=== PATIENT | female | born 1935 | race African-American/Black ===

== ENCOUNTER 2018-04-14 13:01 | Emergency (ER) | payer MEDICARE, MEDICAID ==
[~2018-04-14] VITALS: Ht 165.1 cm; Wt 80.0 kg
[~2018-04-14 13:01] MED LIST: ALEN35TA30 PO; AMLODIPINE PO; CLOP75TA16 PO
[2018-04-14] MEDS ORDERED: SODIUM CHLORIDE 0.9% 1,000 ML IV ONE (13:26)
[2018-04-14 14:29] LABS: BASOPHILS % 0.5 % (0.0-2.0); EOSINOPHILS % 0.6 % (0.0-5.0); HEMATOCRIT. 43.4 % (36.0-48.0); HEMOGLOBIN. 14.5 g/dL (12.0-16.0); LYMPHOCYTES % 25.2 % (20.0-50.0); MEAN CORPUSCULAR HEMOGLOBIN 27.9 pg (28.0-32.0); MEAN CORPUSCULAR VOLUME 83.5 fL (81.0-99.0); MEAN PLATELET VOLUME 7.8 fl (7.4-10.4); NEUTROPHILS % 66.7 % (40.0-76.0); PLATELET 251 x1000/uL (130-400); RED CELL DISTRIBUTION WIDTH 15.7 % (11.6-14.6)
[2018-04-14 14:33] LABS: CHLORIDE 108 mEq/L (98-107)
[2018-04-14 14:35] LABS: PROTHROMBIN TIME 10.7 sec (9.4-11.6)
[2018-04-14 16:40] VITALS: BP 152/89
== END 2018-04-14 16:40 | disposition home or self-care (01) ==
LOC: ER 13:01 → CANBEDREQ 18:42
DX: R55 Syncope and collapse (principal); I10 Essential (primary) hypertension
CPT/HCPCS: 36415; 71045; 80053; 84484; 85025; 85610; 93005; 96360; 96361; 99285; J7030

== ENCOUNTER 2025-09-02 07:59 | Inpatient (IN) | payer MEDICARE, MEDICAID ==
[~2025-09-02] VITALS: Ht 160 cm; Wt 81.6 kg
[~2025-09-02 07:59] MED LIST changes: -ALEN35TA30 PO; +ALEN35TA52 PO; +CLOP-31 PO; -CLOP75TA16 PO
[2025-09-02 08:02] VITALS: O2SAT 98
[2025-09-02 08:58] LABS: BASOPHILS % 0.7 % (0.0-2.0); EOSINOPHILS % 1.5 % (0.0-5.0); HEMATOCRIT. 44.8 % (36.0-48.0); HEMOGLOBIN. 14.5 g/dL (12.0-16.0); LYMPHOCYTES % 25.4 % (20.0-50.0); MEAN PLATELET VOLUME 7.7 fl (7.4-10.4); MONOCYTES % 5.7 % (2.0-8.0); NEUTROPHILS % 66.7 % (40.0-76.0); PLATELET 354 x1000/uL (130-400); RED BLOOD CELL COUNT 5.32 mill/uL (4.2-5.4); RED CELL DISTRIBUTION WIDTH 16.2 % (11.6-14.6)
[2025-09-02 09:17] LABS: TROPONIN I HIGH SENSITIVITY 5 ng/L (3.0-34)
[2025-09-02 09:18] LABS: CREATININE 1.5 mg/dL (0.6-1.0); UREA NITROGEN BLOOD 9 mg/dL (9-23)
[2025-09-02 09:20] LABS: ASPARTATE AMINOTRANSFERASE 14 IU/L (<34); BILIRUBIN DIRECT 0.1 mg/dL (<=3.0); BILIRUBIN TOTAL 0.5 mg/dL (0.1-1.0); PROTEIN TOTAL 8.1 g/dL (6.0-8.3)
[2025-09-02 11:09] LABS: TROPONIN I HIGH SENSITIVITY 4 ng/L (3.0-34)
[2025-09-02] MEDS: METOPROLOL TARTRATE 50MG TABLET PO ONE (11:21)
[2025-09-02] MEDS ORDERED: IPRATROPIUM/ALBUTEROL 0.5-3(2.5)MG/3ML NEB HHN PRN (12:15)
[2025-09-02] MEDS ORDERED: DOCUSATE SODIUM 100MG CAPSULE PO PRN (12:15)
[2025-09-02] MEDS ORDERED: POTASSIUM CHLORIDE 40 MEQ in DEXT 5% WATER 230 ML IV ONE (12:15)
[2025-09-02] MEDS ORDERED: CLONIDINE 0.1MG TABLET PO PRN (12:15)
[2025-09-02] MEDS ORDERED: MAGNESIUM/ALUMINUM HYDROXIDE/SIMETHICONE 30ML UDC PO PRN (12:15)
[2025-09-02] MEDS ORDERED: ACETAMINOPHEN 325MG TABLET PO PRN ×2 (12:15)
[2025-09-02] MEDS ORDERED: GUAIFENESIN 200MG/10ML SUGAR FREE UDC PO PRN (12:15)
[2025-09-02] MEDS ORDERED: ONDANSETRON HCL 4MG/2ML INJ IV PRN (12:15)
[2025-09-02] MEDS: AMLODIPINE 10MG TABLET PO SCH (13:00)
[2025-09-02 14:13] VITALS: BP 101/59; PULSE 64; RESP 18; TEMP 36.14
[2025-09-02] MEDS: MAGNESIUM 2 G PREMIX 50 ML IV NR (15:19)
[2025-09-02] MEDS: LEVOTHYROXINE SODIUM 75MCG TABLET PO SCH (15:20)
[2025-09-02] MEDS: CLOPIDOGREL 75MG TABLET PO SCH (15:20)
[2025-09-02 16:00] VITALS: BP 101/59; PULSE 64; RESP 18; TEMP 36.1; O2SAT 97
[2025-09-02] MEDS: KCL 20MEQ/100ML X 2 FOR TOTAL KCL 40MEQ/200ML IV SCH (18:31)
[2025-09-02 20:00] VITALS: BP 134/78; PULSE 56; RESP 19; TEMP 36.4; O2SAT 96
[2025-09-02] MEDS ORDERED: LEVO75TA7 PO (20:18)
[2025-09-02] MEDS ORDERED: ATOR10TA69 PO (20:18)
[2025-09-02] MEDS ORDERED: DONE-53 PO (20:18)
[2025-09-02] MEDS ORDERED: ERGO1250 PO (20:18)
[2025-09-02] MEDS: ATORVASTATIN CALCIUM 10MG TABLET PO SCH (21:28)
[2025-09-02] MEDS: ENOXAPARIN 30MG/0.3ML SYR SUBCUT SCH (21:29)
[2025-09-03] VITALS: BP 136/53; PULSE 64; RESP 19; TEMP 36.4; O2SAT 96
[2025-09-03 04:00] VITALS: BP 117/61; PULSE 60; RESP 18; TEMP 36.4; O2SAT 97
[2025-09-03 07:50] LABS: BASOPHILS % 0.6 % (0.0-2.0); EOSINOPHILS % 1.4 % (0.0-5.0); HEMATOCRIT. 37.7 % (36.0-48.0); HEMOGLOBIN. 12.5 g/dL (12.0-16.0); LYMPHOCYTES % 29.8 % (20.0-50.0); MEAN PLATELET VOLUME 8.0 fl (7.4-10.4); MONOCYTES % 7.7 % (2.0-8.0); NEUTROPHILS % 60.5 % (40.0-76.0); PLATELET 295 x1000/uL (130-400); RED BLOOD CELL COUNT 4.55 mill/uL (4.2-5.4); RED CELL DISTRIBUTION WIDTH 16.4 % (11.6-14.6)
[2025-09-03 08:00] VITALS: BP 105/84; PULSE 56; RESP 18; TEMP 36.5; O2SAT 96
[2025-09-03 08:17] LABS: T4 FREE 1.38 ng/dL (0.89-1.76)
[2025-09-03 08:18] LABS: CREATININE 1.5 mg/dL (0.6-1.0); TRIGLYCERIDE 87.0 mg/dL (0-150)
[2025-09-03 08:19] LABS: LDL CHOLESTEROL 81.0 mg/dL (5-100); UREA NITROGEN BLOOD 17.0 mg/dL (9-23)
[2025-09-03 08:23] LABS: ASPARTATE AMINOTRANSFERASE 13 IU/L (<34); BILIRUBIN DIRECT 0.1 mg/dL (<=3.0); BILIRUBIN TOTAL 0.4 mg/dL (0.1-1.0); PROTEIN TOTAL 6.4 g/dL (6.0-8.3)
[2025-09-03] MEDS: PANTOPRAZOLE SODIUM 40 MG/VIAL IV SCH (09:02)
[2025-09-03] MEDS: ASPIRIN 81MG EC TABLET PO SCH (10:28)
[2025-09-03 12:00] VITALS: BP 121/68; PULSE 55; RESP 20; TEMP 36.6; O2SAT 98
[2025-09-03 16:00] VITALS: BP 122/58; PULSE 59; RESP 20; TEMP 36.6; O2SAT 96
[2025-09-03 20:00] VITALS: BP 135/76; PULSE 64; RESP 18; TEMP 36.3; O2SAT 97
[2025-09-03] MEDS ORDERED: ATORVASTATIN CALCIUM 10MG TABLET PO SCH (21:00)
[2025-09-03] MEDS: ATORVASTATIN CALCIUM 40MG TABLET PO SCH (21:06)
[2025-09-04] VITALS: BP 134/65; PULSE 58; RESP 18; TEMP 36.3; O2SAT 97
[2025-09-04 04:00] VITALS: BP 155/71; PULSE 59; RESP 18; TEMP 36.3; O2SAT 96
[2025-09-04 09:03] LABS: BASOPHILS % 0.5 % (0.0-2.0); EOSINOPHILS % 2.0 % (0.0-5.0); HEMATOCRIT. 37.1 % (36.0-48.0); HEMOGLOBIN. 12.0 g/dL (12.0-16.0); LYMPHOCYTES % 31.1 % (20.0-50.0); MEAN PLATELET VOLUME 8.0 fl (7.4-10.4); MONOCYTES % 7.5 % (2.0-8.0); NEUTROPHILS % 58.9 % (40.0-76.0); PLATELET 276 x1000/uL (130-400); RED BLOOD CELL COUNT 4.47 mill/uL (4.2-5.4); RED CELL DISTRIBUTION WIDTH 16.1 % (11.6-14.6)
[2025-09-04 09:11] LABS: TROPONIN I HIGH SENSITIVITY 4 ng/L (3.0-34)
[2025-09-04 09:13] LABS: CREATININE 1.3 mg/dL (0.6-1.0)
[2025-09-04 09:14] LABS: LDL CHOLESTEROL 75 mg/dL (5-100); TRIGLYCERIDE 89 mg/dL (0-150); UREA NITROGEN BLOOD 20 mg/dL (9-23)
[2025-09-04 09:16] LABS: PHOSPHORUS 2.5 mg/dL (2.5-4.9)
[2025-09-04 12:00] VITALS: BP 124/70; PULSE 66; RESP 20; TEMP 37.1; O2SAT 97
[2025-09-04] MEDS ORDERED: AMLO10TA80 PO (12:04)
[2025-09-04] MEDS ORDERED: LIP40 PO (12:04)
[2025-09-04] MEDS ORDERED: ASPI-1406 PO (12:04)
[2025-09-04 12:51] VITALS: BP 124/70; PULSE 66; RESP 20; TEMP 98.7
== END 2025-09-04 13:45 | disposition home health service (06) | DRG 74 ==
LOC: ER 08:18 → 8WST 11:05 → EDBEDREQTM 11:37 → EDBEDREQ 11:37 → ENRESERV 12:51
PROVIDERS: ADMIT Internal Medicine; ATTEND Internal Medicine
DX: G90.89 Other disorders of autonomic nervous system (principal); E03.9 Hypothyroidism, unspecified; F03.90 Unspecified dementia, unspecified severity, without behavioral disturbance, psychotic disturbance, mood disturbance, and anxiety; I11.9 Hypertensive heart disease without heart failure; I48.0 Paroxysmal atrial fibrillation; E87.6 Hypokalemia; E83.42 Hypomagnesemia; I44.0 Atrioventricular block, first degree; E78.5 Hyperlipidemia, unspecified; Z86.73 Personal history of transient ischemic attack (TIA), and cerebral infarction without residual deficits; Z86.718 Personal history of other venous thrombosis and embolism; Z90.49 Acquired absence of other specified parts of digestive tract
CPT/HCPCS: 36415; 71045; 80048; 80061; 80076; 83036; 83735; 83880; 84100; 84439; 84443; 84484; 85025; 93005; 93306; 99285; J1650; J2470; J3475; J3480